=== PATIENT | male | born 1960 | race Caucasian/White ===

== ENCOUNTER 2019-05-27 17:29 | Emergency (ER) | payer MEDICAID ==
[~2019-05-27] VITALS: Ht 177.8 cm; Wt 75.0 kg
[2019-05-27 17:31] VITALS: BP 136/80
--- NOTE | 2019-05-27 17:38 | NUR ---
PT BIB [facility] AND [facility]. PT CALLED [facility] WHILE OUTSIDE OF [facility] AND STATED HE WANTED TO "JUMP IN FRONT OF A CAR AND " IF THE POLICE DID NOT HELP HIM, [facility] ARRIVED, PT PLACED ON LEGAL HOLD. PT ARRIVES WITH [facility]. PT WITH FLIGHT OF IDEAS DIFFICULT TO OBTAIN INFORMATION FROM PT REGARDING HX OR MEDICATIONS THAT HE TAKES. PT STATES HE WANTS TO JUST LIKE HIS BROTHER DID. ALL BELONGINGS REMOVED FROM PT 2 BAGS LABELED AND PLACED IN LOCKER. PT IN SECURE RM, SITTER IN PLACE
[2019-05-27 18:03] LABS: BASOPHILS # (AUTO) 0.07 x10^3/uL (0-0.1); BASOPHILS % (AUTO) 1 % (0-1); EOSINOPHILS # (AUTO) 0.22 x10^3/uL (0-0.4); EOSINOPHILS % (AUTO) 3 % (1-7); LYMPHOCYTES % (AUTO) 30 % (22-44); MD NO; MEAN CORPUSCULAR HGB CONC 33.2 g/dL (33.2-36.2); MEAN CORPUSCULAR VOLUME 99.3 fL (81-97); MEAN PLATELET VOLUME 7.6 fL (7.4-10.4); MONOCYTES % (AUTO) 6 % (2-9); NEUTROPHILS # (AUTO) 4.97 x10^3/uL (1.8-6.8); NEUTROPHILS % (AUTO) 60 % (42-75); PLATELET COUNT 342 x10^3/uL (130-400); RED CELL DISTRIBUTION WIDTH 13.5 % (9.4-14.8)
[2019-05-27 18:10] LABS: ALANINE AMINOTRANSFERASE 16 U/L (12-78); ALBUMIN 3.8 g/dL (3.4-5.0); ANION GAP 3 mmol/L (5-15); CALCIUM 8.9 mg/dL (8.5-10.1); CHLORIDE 110 mmol/L (98-107); CREATININE 0.84 mg/dL (0.7-1.3)
[2019-05-27 18:12] LABS: ALKALINE PHOSPHATASE 93 U/L (45-117); BILIRUBIN,TOTAL 0.3 mg/dL (0.2-1.0)
--- NOTE | 2019-05-27 18:56 | NUR ---
REPORT FROM WILLIAM ALLISON, ASSUMING CARE OF PT AT THIS TIME
[2019-05-27 19:18] LABS: AMPHETAMINE SCREEN, URINE Negative (Negative); BARBITURATE SCREEN, URINE Negative (Negative); BENZODIAZEPINE SCREEN, URINE Negative (Negative); CANNABINOID SCREEN, URINE Positive (Negative); COCAINE SCREEN, URINE Negative (Negative); METHADONE SCREEN, URINE Negative (Negative); OPIATE SCREEN, URINE Negative (Negative)
--- NOTE | 2019-05-27 20:00 | NUR ---
Patient/Caregiver given discharge instructions and they have confirmed that they understand the instructions. Patient ambulatory with steady gait.
== END 2019-05-27 20:06 | disposition home or self-care (01) ==
LOC: ED 20:00
DX: F22 Delusional disorders (principal); Z72.9 Problem related to lifestyle, unspecified
CPT/HCPCS: 36415; 80053; 80307; 85025; 99284